=== PATIENT | male | born 1960 | race Caucasian/White ===

== ENCOUNTER 2016-09-07 13:48 | Emergency (ER) | payer MEDICARE, MEDICAID ==
[~2016-09-07 13:48] MED LIST: AUGMENTIN875 MG PO; BACTROBAN OINT.22 GM TP; BENADRYL-DPS25 MG PO; CELEXA40 MG PO; CLARITIN DPS10 MG PO; CORTAID28 GM TP; DUONEB DPS3 ML IH; FLOMAX DPS0.4 MG PO; FLONASE 0.05% D16 GM NS; GLUCOPHAGE-DPS500 MG PO; GLUCOSAMINE/CHO1 TAB PO; IMODIUM DPS2 MG PO; KLONOPIN DPS0.5 MG PO; KLONOPIN DPS1 MG PO; LOTRIMIN 1% DPS30 ML AU; MAG-AL LIQUID30 ML PO; MAGOX 400400 MG PO; MIRALAX PACKET17 GM PO; PROVENTIL2.5 MG/3 M IH; PULMICORT0.5 MG/21 IH; ROBITUSSIN DM D30 ML PO; TYLENOL EXTRA500 M1 PO; ZANTAC DPS150 MG PO; ZYLOPRIM-DPS100 MG PO
--- NOTE | 2016-09-19 21:14 | ER ---
ADMIT: 09/07/2016 RM/LOC: ER [facility] MR#: [id number] [address] [id number] JESSICA MYRICK [address] [address] Emergency Room Report SEX: M AGE: 56 : 1960 DATE: 09/07/2016 ADDENDUM: CHIEF COMPLAINT: Cough. HISTORY OF PRESENT ILLNESS: This is a 56-year-old male, who lives with another resident that had influenza last week. He just developed a cough 2 days ago. They said he had a fever of 99. He seemed to be choking while he was eating today, he was coughing so hard so they brought him into the ER. Chest x- ray was done, shows a left-sided pleural effusion versus atelectasis. Influenza test was negative. I will send him home with [facility], having him follow up with his primary care physician if symptoms worsen. GILBERTO Oconnell / Speedy Iversno MD / ev JOB #: [id number] CC: Speedy Iverson MD, Attending Physician Ace Huizar MD, Family Physician
[2017-01-14] MEDS ORDERED: FLOMAX DPS0.4 MG PO (13:50)
[2017-01-14] MEDS ORDERED: GLUCOPHAGE-DPS500 MG PO (13:51)
[2017-01-14] MEDS ORDERED: KLONOPIN DPS0.5 MG PO ×2 (13:51)
[2017-01-14] MEDS ORDERED: ZYLOPRIM100 MG PO (13:51)
[2017-01-14] MEDS ORDERED: MAG-OX400 MG PO (13:51)
[2017-01-14] MEDS ORDERED: DUONEB DPS3 ML IH ×2 (13:51→13:52)
[2017-01-14] MEDS ORDERED: PEPCID DPS20 MG PO (13:51)
[2017-01-14] MEDS ORDERED: FLONASE 0.05% D16 GM NS (13:52)
[2017-01-14] MEDS ORDERED: CLOTRIMAZOLE AF30 GM TP (13:52)
[2017-01-14] MEDS ORDERED: PULMICORT0.5 MG/21 PO (13:52)
[2017-01-14] MEDS ORDERED: CLARITIN DPS10 MG PO (13:58)
[2017-01-14] MEDS ORDERED: TYLENOL EXTRA500 MG PO (13:58)
[2017-01-14] MEDS ORDERED: LOTRIMIN 1% DPS30 ML OU (13:58)
[2017-01-14] MEDS ORDERED: BENADRYL-DPS25 MG PO (13:58)
[2017-01-14] MEDS ORDERED: MAG-AL LIQUID30 ML PO (13:59)
[2017-01-14] MEDS ORDERED: ROBITUSSIN COU1 EACH PO (13:59)
[2017-01-14] MEDS ORDERED: MIRALAX PACKET17 GM PO (14:00)
[2017-01-14] MEDS ORDERED: HYDROCORTISONE30 GM TP (14:00)
[2017-01-14] MEDS ORDERED: IMODIUM DPS2 MG PO (14:02)
== END 2016-09-07 15:18 | disposition home or self-care (01) ==
LOC: ER 13:48
DX: J40 Bronchitis, not specified as acute or chronic (principal); F41.9 Anxiety disorder, unspecified; J45.909 Unspecified asthma, uncomplicated; M10.9 Gout, unspecified